=== PATIENT | female | born 1985 | race Caucasian/White ===

== ENCOUNTER → 2018-06-17 | Outpatient (CLI) | payer OTHER ==
[~2018-06-17] MED LIST: 0.9 % SODIUM CHLORIDE 10 ML DISP.SYRIN. ID ONE; CONTRAST GIVEN. MC PRN; GADOBUTROL 7.5 MMOL/7.5 ML VIAL INT ART ONE; IOHEXOL 300 MG/ML 50 ML VIAL. INT ART ONE; LIDOCAINE 1% Multi-Dose 20 ML VIAL. ID ONE
--- NOTE | 2018-06-17 16:08 | KCIC ---
Clinical indications: Left shoulder pain. Decreased range of motion. Procedure: The procedure and possible complications including bleeding and infection were explained. The patient provided both verbal and written consent. A timeout was performed confirming the name of the patient and date of and the procedure and side of the procedure. The anterior aspect of the left shoulder was prepped and draped in the usual sterile fashion with ChloraPrep. A total of left cc of 1% lidocaine was utilized for local anesthesia. Using sterile technique and fluoroscopic guidance, a 22-gauge spinal needle was directed into the left glenohumeral joint from an anterior approach. After negative aspiration, a solution containing 10 cc of sterile normal saline and 5 cc of 1% lidocaine and 5 cc of Omnipaque 300 and 0.1 cc of Gadavist was injected intra-articularly under fluoroscopic observation and a fluoroscopic spot view of the left shoulder was performed which confirmed intra-articular position of the contrast. The needle was removed and hemostasis was adequate. A sterile bandage was applied to the puncture site. The patient tolerated the procedure well without complication and was sent to the MRI suite for further imaging. Total fluoroscopic time: 14 seconds. 2 fluoroscopic spot images were performed. Impression: Fluoroscopic guided left shoulder injection was performed prior to an MRI study. Electronically signed by: Sharath Lantigua MD (06/17/2018 4:05 PM) [facility]
--- NOTE | 2018-06-17 16:44 | KCIC ---
MRI left shoulder arthrogram Clinical indications: Left shoulder pain. Possible rotator cuff tear. Decreased range of motion. At technique: After intra-articular injection of gadolinium, MRI sequences of the left shoulder were performed in all 3 planes. An additional ABER sequence was performed. FINDINGS: No complete tear of the rotator cuff is seen. There is a shallow partial articular surface tear of the attachment of the infraspinatus tendon to the greater tubercle. This is less than 50% thickness of the tendon. The supraspinatus tendon is intact. The subscapularis tendon is intact. The tendon of the long head of biceps is intact. No AC joint separation is seen. 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 A type III acromial process is seen. These findings may may impinge the acromial humeral space. No chronic cystic or erosive change of the lateral aspect of the humeral head is seen otherwise. No subdeltoid or subacromial bursitis is evident. No bone contusion or fracture or marrow infiltrative process is seen. There is a small amount of contrast seen extending into the superior glenoid labrum consistent with a small SLAP lesion here. This is seen at the biceps anchor and just posterior to it. No paralabral ganglion cyst or spinoglenoid notch ganglion cyst is seen. The glenohumeral joint is unremarkable. No loose body is evident. IMPRESSION: Small shallow partial articular surface tear of the lateral aspect of the infraspinatus tendon at the insertion onto the greater tubercle. No complete rotator cuff tear is evident. Impingement of the acromial humeral space. Small SLAP lesion. Electronically signed by: Sharath Lantigua MD (06/17/2018 4:41 PM) [id number]
== END | disposition home or self-care (01) ==
LOC: KCIC MRI 13:31
PROVIDERS: ATTEND Nurse Practitioner
DX: S43.432A Superior glenoid labrum lesion of left shoulder, initial encounter (principal); S46.012A Strain of muscle(s) and tendon(s) of the rotator cuff of left shoulder, initial encounter; M75.42 Impingement syndrome of left shoulder; X58.XXXA Exposure to other specified factors, initial encounter; Y93.89 Activity, other specified; Y92.89 Other specified places as the place of occurrence of the external cause; Y99.8 Other external cause status; Z98.890 Other specified postprocedural states
CPT/HCPCS: 23350; 73040; 73222; A9585; Q9967